=== PATIENT | female | born 1955 | race Caucasian/White ===

== ENCOUNTER → 2024-03-06 09:38 | Outpatient (REF) | payer MEDICARE, OTHER, SELFPAY | LOC: WDC 09:38 | PROVIDERS: ATTENDING PHYSICIAN Surgery; FAMILY PHYSICIAN Internal Medicine | DX: R92.2 Inconclusive mammogram (principal) | CPT/HCPCS: 76641 ==

== ENCOUNTER → 2024-08-28 13:03 | Outpatient (REF) | payer MEDICARE, BC, SELFPAY | LOC: WDC 13:03 | PROVIDERS: ATTENDING PHYSICIAN Surgery; FAMILY PHYSICIAN Internal Medicine | DX: Z12.31 Encounter for screening mammogram for malignant neoplasm of breast (principal) | CPT/HCPCS: 77063; 77067 ==

== ENCOUNTER → 2025-01-23 12:40 | Outpatient (REF) | payer MEDICARE, BC, SELFPAY | LOC: WDC 12:40 | PROVIDERS: ATTENDING PHYSICIAN Nurse Practitioner Adult Health; FAMILY PHYSICIAN Internal Medicine | DX: R92.2 Inconclusive mammogram (principal); C50.912 Malignant neoplasm of unspecified site of left female breast; Z13.820 Encounter for screening for osteoporosis | CPT/HCPCS: 76641 ==